=== PATIENT | female | born 1955 | race Asian ===

== ENCOUNTER → 2019-03-07 | Outpatient (CLI) | payer MEDICARE, OTHER | END | disposition home or self-care (01) | LOC: RADPV 11:36 | PROVIDERS: ATTEND Legal Medicine | DX: M79.671 Pain in right foot (principal) ==

== ENCOUNTER → 2019-07-16 | Outpatient (CLI) | payer MEDICARE, OTHER | END | disposition home or self-care (01) | LOC: RADPV 11:41 | PROVIDERS: ATTEND Legal Medicine | DX: R07.9 Chest pain, unspecified (principal) | CPT/HCPCS: 71101 ==